=== PATIENT | female | born 1975 | race Caucasian/White ===

== ENCOUNTER 2022-01-01 02:20 | Emergency (ER) | payer BC | END 2022-01-01 03:52 | disposition home or self-care (01) | LOC: ER1 02:20 | DX: S51.812A Laceration without foreign body of left forearm, initial encounter (principal); Z23 Encounter for immunization; I10 Essential (primary) hypertension; J45.909 Unspecified asthma, uncomplicated; W19.XXXA Unspecified fall, initial encounter; Y92.833 Campsite as the place of occurrence of the external cause | CPT/HCPCS: 12002; 90471; 90715; 99282 ==